=== PATIENT | female | born 1950 | race Caucasian/White ===

== ENCOUNTER 2018-09-26 23:58 | Inpatient (IN) | payer MEDICARE, OTHER ==
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
[2018-09-27 00:39] LABS: % BASOPHILS 4.6 % (0.0-2.0); % EOSINOPHILS 1.9 % (0.0-5.0); % LYMPHOCYTES 16.1 % (20.0-50.0); % MONOCYTES 7.2 % (2.0-10.0); % NEUTROPHILS 70.2 % (40.0-80.0); BASOPHILE ABSOLUTE 0.5 Th/cumm (0-0.2); EOSINOPHILE ABSOLUTE 0.2 Th/cmm (0.1-0.4); HEMATOCRIT 40.1 % (41.0-60); HEMOGLOBIN 13.4 gm/dL (12-16); LYMPHOCYTE ABSOLUTE 1.7 Th/cmm (1.5-3.0); MEAN CELL VOLUME 86.3 fl (81-100); MEAN CORPUSCULAR HEMOGLOBIN 28.9 pg (27.0-31.0); MEAN CORPUSCULAR HGB CONC 33.5 pg (28.0-36.0); MONOCYTE ABSOLUTE 0.8 Th/cmm (0.3-1.0); NEUTROPHILE ABSOLUTE 7.3 Th/cmm (1.8-8.0); PLATELET COUNT 277 Th/cmm (150-400); RED BLOOD COUNT 4.64 Mil/cmm (3.80-5.20); RED CELL DISTRIBUTION WIDTH 12.8 % (11.5-20.0); WHITE BLOOD COUNT 10.5 Th/cmm (4.8-10.8)
[2018-09-27 00:56] LABS: ALB/GLOB RATIO 1.7 (1.0-1.8); ALBUMIN 4.1 gm/dL (3.7-5.3); ALKALINE PHOSPHATASE 64 U/L (34-104); ANION GAP 11.2 (7.0-16.0); BILIRUBIN,TOTAL 0.3 mg/dL (0.3-1.0); BUN - UREA NITROGEN 19 mg/dL (7-25); CALCIUM SERUM 9.3 mg/dL (8.6-10.3); CARBON DIOXIDE 27.7 mEq/L (21.0-31.0); CHLORIDE 103 mEq/L (98-107); CHOLESTEROL 177 mg/dL (<200); CREATININE - SERUM 0.9 mg/dL (0.6-1.2); GFR AFRICAN-AMERICAN > 60.0 ml/min (>90); GFR NON AFRICAN-AMERICAN > 60.0 ml/min; GLUCOSE 127 mg/dL (70-105); HDL -HIGH DENSITY LIPOPROTEIN 65 mg/dL (23-92); POTASSIUM SERUM 3.9 mEq/L (3.5-5.1); SGOT 25 U/L (13-39); SGPT/ALT 16 U/L (7-52); SODIUM SERUM 138 mEq/L (136-145); TOTAL PROTEIN,SERUM 6.5 gm/dL (6.0-8.3); TRIGLYCERIDES 88 mg/dL (<150)
[2018-09-27 00:57] LABS: URINE SOURCE CLEAN C
[2018-09-27 01:01] LABS: URINE BILIRUBIN NEGATIVE (NEGATIVE); URINE BLOOD NEGATIVE (NEGATIVE); URINE GLUCOSE (UA) NEGATIVE (NEGATIVE); URINE KETONE NEGATIVE (NEGATIVE); URINE LEUKOCYTE ESTERASE TRACE (NEGATIVE); URINE MICROSCOPIC INDICATED? YES; URINE NITRATE NEGATIVE (NEGATIVE); URINE PROTEIN NEGATIVE (NEGATIVE); URINE UROBILINOGEN 0.2 E.U./dL (0.2 - 1.0)
[2018-09-27 01:02] LABS: URINE CLARITY CLEAR (CLEAR); URINE COLOR YELLOW
[2018-09-27 01:09] LABS: URINE EPITHELIAL CELLS FEW /lpf (FEW); URINE RBC 0-2 /hpf (0-5); URINE WBC 0-2 /hpf (0-5)
[2018-09-27 01:10] LABS: URINE BACTERIA FEW /hpf (NONE SEEN)
[2018-09-27 03:54] VITALS: BP 132/88
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
--- NOTE | 2018-09-27 14:20 | Internal Medicine Prog Note ---
Internal Medicine Subjective - Subjective Service Date: 09/27/18 ([id number] [facility]) Internal Medicine Objective - Results Result Diagrams: 09/27/18 00:30 09/27/18 00:30 Recent Labs: Laboratory Last Values WBC 10.5 Th/cmm (4.8-10.8) 09/27/18 00:30 RBC 4.64 Mil/cmm (3.80-5.20) 09/27/18 00:30 Hgb 13.4 gm/dL (12-16) 09/27/18 00:30 Hct 40.1 % (41.0-60) L 09/27/18 00:30 MCV 86.3 fl (81-100) 09/27/18 00:30 MCH 28.9 pg (27.0-31.0) 09/27/18 00:30 MCHC Differential 33.5 pg (28.0-36.0) 09/27/18 00:30 RDW 12.8 % (11.5-20.0) 09/27/18 00:30 Plt Count 277 Th/cmm (150-400) 09/27/18 00:30 MPV 7.0 fl 09/27/18 00:30 Neutrophils % 70.2 % (40.0-80.0) 09/27/18 00:30 Lymphocytes % 16.1 % (20.0-50.0) L 09/27/18 00:30 Monocytes % 7.2 % (2.0-10.0) 09/27/18 00:30 Eosinophils % 1.9 % (0.0-5.0) 09/27/18 00:30 Basophils % 4.6 % (0.0-2.0) H 09/27/18 00:30 Sodium 138 mEq/L (136-145) 09/27/18 00:30 Potassium 3.9 mEq/L (3.5-5.1) 09/27/18 00:30 Chloride 103 mEq/L (98-107) 09/27/18 00:30 Carbon Dioxide 27.7 mEq/L (21.0-31.0) 09/27/18 00:30 Anion Gap 11.2 (7.0-16.0) 09/27/18 00:30 BUN 19 mg/dL (7-25) 09/27/18 00:30 Creatinine 0.9 mg/dL (0.6-1.2) 09/27/18 00:30 Est GFR ( Amer) > 60.0 ml/min (>90) 09/27/18 Est GFR (Non-Af Amer) > 60.0 ml/min 09/27/18 00: BUN/Creatinine Ratio 21.1 09/27/18 Glucose 127 mg/dL (70-105) H 09/27/18: Calcium 9.3 mg/dL (8.6-10.3) 09/27/18: Total Bilirubin 0.3 mg/dL (0.3-1.0) 09/27/18: AST 25 U/L (13-39) 09/27/18: ALT 16 U/L (7-52) 09/27/18: Alkaline Phosphatase 64 U/L (34-104) 09/27/18 Total Protein 6.5 gm/dL (6.0-8.3) 09/27/18: Albumin 4.1 gm/dL (3.7-5.3) 09/27/18: Globulin 2.4 gm/dL 09/27/18: Albumin/Globulin Ratio 1.7 (1.0-1.8) 09/27/18 00:30 Triglycerides 88 mg/dL (<150) 09/27/18 00:30 Cholesterol 177 mg/dL (<200) 09/27/18 00:30 LDL Cholesterol Direct 111 mg/dL (75-193) 09/27/18: HDL Cholesterol 65 mg/dL (23-92) 09/27/18 00:30 TSH 4.84 uIU/ml (0.34-5.60) 09/27/18 00:30 Urine Source CLEAN C 09/27/18:35 Urine Color YELLOW 09/27/18: Urine Clarity CLEAR (CLEAR) 09/27/18: Urine pH 6.0 (4.6 - 8.0) 09/27/18 00: Ur Specific [place] 1.010 (1.005-1.030) 09/27/18: Urine Protein NEGATIVE mg/dL (NEGATIVE) 09/27/18:35 Urine Glucose (UA) NEGATIVE mg/dL (NEGATIVE) 09/27/18 00:35 Urine Ketones NEGATIVE mg/dL (NEGATIVE) 09/27/18 00:35 Urine Blood NEGATIVE (NEGATIVE) 09/27/18 00:35 Urine Nitrate NEGATIVE (NEGATIVE) 09/27/18 00:35 Urine Bilirubin NEGATIVE (NEGATIVE) 09/27/18 00:35 Urine Urobilinogen 0.2 E.U./dL (0.2 - 1.0) 09/27/18 00:35 Ur Leukocyte Esterase TRACE (NEGATIVE) H 09/27/18 00:35 Urine RBC 0-2 /hpf (0-5) 09/27/18 00:35 Urine WBC 0-2 /hpf (0-5) 09/27/18 00:35 Ur Epithelial Cells FEW /lpf (FEW) 09/27/18 00:35 Urine Bacteria FEW /hpf (NONE SEEN) 09/27/18 00:35 - Physical Exam Vitals and I&O: Vital Signs Temp 98.2 F 09/27/18 07:09 Pulse 68 09/27/18 07:09 Resp 20 09/27/18 07:09 BP 134/82 09/27/18 07:09 Pulse Ox 98 09/27/18 07:09 Intake & Output 09/26/18 09/27/18 09/27/18 18:59 06:59 18:59 Weight (lbs) 110 lb Other: Weight Source Patient stated Active Medications: Current Medications Sertraline HCl (Zoloft) 25 mg PO QAM [facility]; Protocol Stop: 11/26/18 08:59 Last Admin: 09/27/18 12:21 Dose: 25 mg Sertraline HCl (Zoloft) 50 mg PO QPM [facility]; Protocol Stop: 11/26/18 16:59
[2018-09-27] MEDS ORDERED: Magnesium Hydroxide (MOM) 30 mL UDC PO PRN (15:03)
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
[2018-09-28] MEDS ORDERED: Haloperidol Lactate 5 mg/mL 1mL Vial IM ONE (03:00)
--- NOTE | 2018-09-28 14:10 | Internal Medicine Prog Note ---
Internal Medicine Subjective - Subjective Service Date: 09/28/18 Patient seen and examined:: with staff Patient is:: awake, verbal Per staff patient has:: tolerating meds Internal Medicine Objective - Results Result Diagrams: 09/27/18 00:30 09/27/18 00:30 Recent Labs: Laboratory Last Values WBC 10.5 Th/cmm (4.8-10.8) 09/27/18 00:30 RBC 4.64 Mil/cmm (3.80-5.20) 09/27/18 00:30 Hgb 13.4 gm/dL (12-16) 09/27/18 00:30 Hct 40.1 % (41.0-60) L 09/27/18 00:30 MCV 86.3 fl (81-100) 09/27/18 00:30 MCH 28.9 pg (27.0-31.0) 09/27/18 00:30 MCHC Differential 33.5 pg (28.0-36.0) 09/27/18 00:30 RDW 12.8 % (11.5-20.0) 09/27/18 00:30 Plt Count 277 Th/cmm (150-400) 09/27/18 00:30 MPV 7.0 fl 09/27/18 00:30 Neutrophils % 70.2 % (40.0-80.0) 09/27/18 00:30 Lymphocytes % 16.1 % (20.0-50.0) L 09/27/18 00:30 Monocytes % 7.2 % (2.0-10.0) 09/27/18 00:30 Eosinophils % 1.9 % (0.0-5.0) 09/27/18 00:30 Basophils % 4.6 % (0.0-2.0) H 09/27/18 00:30 Sodium 138 mEq/L (136-145) 09/27/18 00:30 Potassium 3.9 mEq/L (3.5-5.1) 09/27/18 00:30 Chloride 103 mEq/L (98-107) 09/27/18 00:30 Carbon Dioxide 27.7 mEq/L (21.0-31.0) 09/27/18 00:30 Anion Gap 11.2 (7.0-16.0) 09/27/18 00:30 BUN 19 mg/dL (7-25) 09/27/18 00:30 Creatinine 0.9 mg/dL (0.6-1.2) 09/27/18 00:30 Est GFR ( Amer) > 60.0 ml/min (>90) 09/27/18:30 Est GFR (Non-Af Amer) > 60.0 ml/min 09/27/18 00: BUN/Creatinine Ratio 21.1 09/27/18 Glucose 127 mg/dL (70-105) H 09/27/18: Calcium 9.3 mg/dL (8.6-10.3) 09/27/18:30 Total Bilirubin 0.3 mg/dL (0.3-1.0) 09/27/18:30 AST 25 U/L (13-39) 09/27/18:30 ALT 16 U/L (7-52) 09/27/18: Alkaline Phosphatase 64 U/L (34-104) 09/27/18:30 Total Protein 6.5 gm/dL (6.0-8.3) 09/27/18 00:30 Albumin 4.1 gm/dL (3.7-5.3) 09/27/18:30 Globulin 2.4 gm/dL 09/27/18:30 Albumin/Globulin Ratio 1.7 (1.0-1.8) 09/27/18 00:30 Triglycerides 88 mg/dL (<150) 09/27/18 00:30 Cholesterol 177 mg/dL (<200) 09/27/18 00:30 LDL Cholesterol Direct 111 mg/dL (75-193) 09/27/18 00:30 HDL Cholesterol 65 mg/dL (23-92) 09/27/18 00:30 TSH 4.84 uIU/ml (0.34-5.60) 09/27/18 00:30 Urine Source CLEAN C 09/27/18:35 Urine Color YELLOW 09/27/18:35 Urine Clarity CLEAR (CLEAR) 09/27/18:35 Urine pH 6.0 (4.6 - 8.0) 09/27/18 00:35 Ur Specific [place] 1.010 (1.005-1.030) 11/26/18 00:35 Urine Protein NEGATIVE mg/dL (NEGATIVE) 09/27/18 00:35 Urine Glucose (UA) NEGATIVE mg/dL (NEGATIVE) 09/27/18 00:35 Urine Ketones NEGATIVE mg/dL (NEGATIVE) 09/27/18 00:35 Urine Blood NEGATIVE (NEGATIVE) 09/27/18 00:35 Urine Nitrate NEGATIVE (NEGATIVE) 09/27/18 00:35 Urine Bilirubin NEGATIVE (NEGATIVE) 09/27/18 00:35 Urine Urobilinogen 0.2 E.U./dL (0.2 - 1.0) 09/27/18 00:35 Ur Leukocyte Esterase TRACE (NEGATIVE) H 09/27/18 00:35 Urine RBC 0-2 /hpf (0-5) 09/27/18 00:35 Urine WBC 0-2 /hpf (0-5) 09/27/18 00:35 Ur Epithelial Cells FEW /lpf (FEW) 09/27/18 00:35 Urine Bacteria FEW /hpf (NONE SEEN) 09/27/18 00:35 - Physical Exam Vitals and I&O: Vital Signs Temp 98 F 09/28/18 06:34 Pulse 82 09/28/18 06:34 Resp 18 09/28/18 06:34 BP 137/86 09/28/18 06:34 Pulse Ox 98 09/28/18 06:34 Intake & Output 09/27/18 09/28/18 09/28/18 18:59 06:59 18:59 Intake Total 900 120 Balance 900 120 Intake: Oral 900 120 Other: # Voids 4 3 # Bowel Movements 1 0 Active Medications: Current Medications Acetaminophen (Tylenol) 650 mg PO Q4H PRN PRN Reason: pain Stop: 11/26/18 15:14 Lorazepam (Ativan) 0.5 mg PO Q6HR PRN; Protocol PRN Reason: Agitation Stop: 11/26/18 14:51 Last Admin: 09/28/18 09:14 Dose: 0.5 mg Magnesium Hydroxide (Milk Of Magnesia) 30 ml PO HS PRN PRN Reason: Constipation Stop: 11/26/18 15:02 Sertraline HCl (Zoloft) 50 mg PO QPM [facility] Stop: 11/26/18 16:59 Last Admin: 09/27/18 16:38 Dose: 50 mg Sertraline HCl (Zoloft) 25 mg PO QAM [facility] Stop: 11/27/18 08:59 Last Admin: 09/28/18 09:14 Dose: 25 mg General: alert HEENT: NC/AT, PERRLA Neck: Supple Lungs: CTAB Cardiovascular: RRR, Normal S1, Normal S2, without murmur Abdomen: soft, non-tender, non-distended, positive bowel sound Extremities: excoriation Neurological: alert Internal Medicine Assmt/Plan - Assessment Assessment: osteoporosis anxiety seizure - Plan Plan: seizure precautions fall precautions cpm
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
--- NOTE | 2018-09-29 14:44 | Internal Medicine Prog Note ---
Internal Medicine Subjective - Subjective Service Date: 09/29/18 Patient is:: awake, verbal Per staff patient has:: tolerating meds Internal Medicine Objective - Results Result Diagrams: 09/27/18 00:30 09/27/18 00:30 Recent Labs: Laboratory Last Values WBC 10.5 Th/cmm (4.8-10.8) 09/27/18 00:30 RBC 4.64 Mil/cmm (3.80-5.20) 09/27/18 00:30 Hgb 13.4 gm/dL (12-16) 09/27/18 00:30 Hct 40.1 % (41.0-60) L 09/27/18 00:30 MCV 86.3 fl (81-100) 09/27/18 00:30 MCH 28.9 pg (27.0-31.0) 09/27/18 00:30 MCHC Differential 33.5 pg (28.0-36.0) 09/27/18 00:30 RDW 12.8 % (11.5-20.0) 09/27/18 00:30 Plt Count 277 Th/cmm (150-400) 09/27/18 00:30 MPV 7.0 fl 09/27/18 00:30 Neutrophils % 70.2 % (40.0-80.0) 09/27/18 00:30 Lymphocytes % 16.1 % (20.0-50.0) L 09/27/18 00:30 Monocytes % 7.2 % (2.0-10.0) 09/27/18 00:30 Eosinophils % 1.9 % (0.0-5.0) 09/27/18 00:30 Basophils % 4.6 % (0.0-2.0) H 09/27/18 00:30 Sodium 138 mEq/L (136-145) 09/27/18 00:30 Potassium 3.9 mEq/L (3.5-5.1) 09/27/18 00:30 Chloride 103 mEq/L (98-107) 09/27/18 00:30 Carbon Dioxide 27.7 mEq/L (21.0-31.0) 09/27/18 00:30 Anion Gap 11.2 (7.0-16.0) 09/27/18 00:30 BUN 19 mg/dL (7-25) 09/27/18 00:30 Creatinine 0.9 mg/dL (0.6-1.2) 09/27/18 00:30 Est GFR ( Amer) > 60.0 ml/min (>90) 09/27/18 00:30 Est GFR (Non-Af Amer) > 60.0 ml/min 09/27/18 00: BUN/Creatinine Ratio 21.1 09/27/18: Glucose 127 mg/dL (70-105) H 09/27/18: Calcium 9.3 mg/dL (8.6-10.3) 09/27/18:30 Total Bilirubin 0.3 mg/dL (0.3-1.0) 09/27/18:30 AST 25 U/L (13-39) 09/27/18 00:30 ALT 16 U/L (7-52) 09/27/18 00: Alkaline Phosphatase 64 U/L (34-104) 09/27/18 00:30 Total Protein 6.5 gm/dL (6.0-8.3) 09/27/18 00:30 Albumin 4.1 gm/dL (3.7-5.3) 09/27/18: Globulin 2.4 gm/dL 09/27/18 00:30 Albumin/Globulin Ratio 1.7 (1.0-1.8) 09/27/18 00:30 Triglycerides 88 mg/dL (<150) 09/27/18 00:30 Cholesterol 177 mg/dL (<200) 09/27/18 00:30 LDL Cholesterol Direct 111 mg/dL (75-193) 09/27/18 00:30 HDL Cholesterol 65 mg/dL (23-92) 09/27/18 00:30 TSH 4.84 uIU/ml (0.34-5.60) 09/27/18 00:30 Urine Source CLEAN C 09/27/18:35 Urine Color YELLOW 09/27/18: Urine Clarity CLEAR (CLEAR) 09/27/18: Urine pH 6.0 (4.6 - 8.0) 09/27/18 00:35 Ur Specific [place] 1.010 (1.005-1.030) 09/27/18: Urine Protein NEGATIVE mg/dL (NEGATIVE) 11/26/18 00:35 Urine Glucose (UA) NEGATIVE mg/dL (NEGATIVE) 09/27/18 00:35 Urine Ketones NEGATIVE mg/dL (NEGATIVE) 09/27/18 00:35 Urine Blood NEGATIVE (NEGATIVE) 09/27/18 00:35 Urine Nitrate NEGATIVE (NEGATIVE) 09/27/18 00:35 Urine Bilirubin NEGATIVE (NEGATIVE) 09/27/18 00:35 Urine Urobilinogen 0.2 E.U./dL (0.2 - 1.0) 09/27/18 00:35 Ur Leukocyte Esterase TRACE (NEGATIVE) H 09/27/18 00:35 Urine RBC 0-2 /hpf (0-5) 09/27/18 00:35 Urine WBC 0-2 /hpf (0-5) 09/27/18 00:35 Ur Epithelial Cells FEW /lpf (FEW) 09/27/18 00:35 Urine Bacteria FEW /hpf (NONE SEEN) 09/27/18 00:35 RPR NONREACTIVE (NONREACTIVE) 09/27/18 00:30 - Physical Exam Vitals and I&O: Vital Signs Temp 97.8 F 09/29/18 06:36 Pulse 91 09/29/18 06:36 Resp 20 09/29/18 06:36 BP 141/97 09/29/18 06:36 Pulse Ox 98 09/29/18 06:36 Intake & Output 09/28/18 09/29/18 09/29/18 18:59 06:59 18:59 Intake Total 240 Balance 240 Intake: Oral 240 Other: # Voids 3 1 # Bowel Movements 0 0 Active Medications: Current Medications Acetaminophen (Tylenol) 650 mg PO Q4H PRN PRN Reason: pain Stop: 11/26/18 15:14 Lorazepam (Ativan) 0.5 mg PO Q6HR PRN; Protocol PRN Reason: Agitation Stop: 11/26/18 14:51 Last Admin: 09/28/18 17:52 Dose: 0.5 mg Magnesium Hydroxide (Milk Of Magnesia) 30 ml PO HS PRN PRN Reason: Constipation Stop: 11/26/18 15:02 Sertraline HCl (Zoloft) 50 mg PO QPM [facility] Stop: 11/26/18 16:59 Last Admin: 09/28/18 17:52 Dose: 50 mg Sertraline HCl (Zoloft) 25 mg PO QAM [facility] Stop: 11/27/18 08:59 Last Admin: 09/29/18 08:26 Dose: 25 mg General: alert HEENT: NC/AT, PERRLA Neck: Supple Lungs: CTAB Cardiovascular: RRR, Normal S1, Normal S2, without murmur Abdomen: soft, non-tender, non-distended, positive bowel sound Extremities: excoriation Neurological: alert Internal Medicine Assmt/Plan - Assessment Assessment: osteoporosis anxiety seizure - Plan Plan: seizure precautions fall precautions cpm
--- NOTE | 2018-09-30 03:20 | Progress Notes ---
DATE: SUBJECTIVE: Chart reviewed and the patient interviewed. Also discussed the patient's condition with the staff and reviewed the record and labs. The patient is still confused and she is still anxious. The patient also is still unable to provide any safe plan for self-care and she is still easily agitated. The patient also is having severe mood swings. Otherwise, the patient is compliant with taking her medications, but still with prompt instructions from the staff and with lots of redirections. Otherwise, also the patient is compliant with medications and she is cooperative with her treatment. ASSESSMENT: The patient is still psychotic and is still agitated. TREATMENT PLAN: We will continue to monitor her behavior and condition closely. Also, we will work on her ineffective coping and behavior modification and we will continue to follow up closely. JOB# [id number]
--- NOTE | 2018-09-30 14:15 | Internal Medicine Prog Note ---
Internal Medicine Subjective - Subjective Service Date: 09/30/18 Patient is:: awake, verbal Per staff patient has:: tolerating meds Internal Medicine Objective - Results Result Diagrams: 09/27/18 00:30 09/27/18 00:30 Recent Labs: Laboratory Last Values WBC 10.5 Th/cmm (4.8-10.8) 09/27/18 00:30 RBC 4.64 Mil/cmm (3.80-5.20) 09/27/18 00:30 Hgb 13.4 gm/dL (12-16) 09/27/18 00:30 Hct 40.1 % (41.0-60) L 09/27/18 00:30 MCV 86.3 fl (81-100) 09/27/18 00:30 MCH 28.9 pg (27.0-31.0) 09/27/18 00:30 MCHC Differential 33.5 pg (28.0-36.0) 09/27/18 00:30 RDW 12.8 % (11.5-20.0) 09/27/18 00:30 Plt Count 277 Th/cmm (150-400) 09/27/18 00:30 MPV 7.0 fl 09/27/18 00:30 Neutrophils % 70.2 % (40.0-80.0) 09/27/18 00:30 Lymphocytes % 16.1 % (20.0-50.0) L 09/27/18 00:30 Monocytes % 7.2 % (2.0-10.0) 09/27/18 00:30 Eosinophils % 1.9 % (0.0-5.0) 09/27/18 00:30 Basophils % 4.6 % (0.0-2.0) H 09/27/18 00:30 Sodium 138 mEq/L (136-145) 09/27/18 00:30 Potassium 3.9 mEq/L (3.5-5.1) 09/27/18 00:30 Chloride 103 mEq/L (98-107) 09/27/18 00:30 Carbon Dioxide 27.7 mEq/L (21.0-31.0) 09/27/18 00:30 Anion Gap 11.2 (7.0-16.0) 09/27/18 00:30 BUN 19 mg/dL (7-25) 09/27/18 00:30 Creatinine 0.9 mg/dL (0.6-1.2) 09/27/18 00:30 Est GFR ( Amer) > 60.0 ml/min (>90) 09/27/18 00:30 Est GFR (Non-Af Amer) > 60.0 ml/min 09/27/18 00: BUN/Creatinine Ratio 21.1 09/27/18: Glucose 127 mg/dL (70-105) H 09/27/18: Calcium 9.3 mg/dL (8.6-10.3) 09/27/18:30 Total Bilirubin 0.3 mg/dL (0.3-1.0) 09/27/18:30 AST 25 U/L (13-39) 09/27/18 00:30 ALT 16 U/L (7-52) 09/27/18 00: Alkaline Phosphatase 64 U/L (34-104) 09/27/18 00:30 Total Protein 6.5 gm/dL (6.0-8.3) 09/27/18 00:30 Albumin 4.1 gm/dL (3.7-5.3) 09/27/18: Globulin 2.4 gm/dL 09/27/18 00:30 Albumin/Globulin Ratio 1.7 (1.0-1.8) 09/27/18 00:30 Triglycerides 88 mg/dL (<150) 09/27/18 00:30 Cholesterol 177 mg/dL (<200) 09/27/18 00:30 LDL Cholesterol Direct 111 mg/dL (75-193) 09/27/18 00:30 HDL Cholesterol 65 mg/dL (23-92) 09/27/18 00:30 TSH 4.84 uIU/ml (0.34-5.60) 09/27/18 00:30 Urine Source CLEAN C 09/27/18:35 Urine Color YELLOW 09/27/18: Urine Clarity CLEAR (CLEAR) 09/27/18: Urine pH 6.0 (4.6 - 8.0) 09/27/18 00:35 Ur Specific [place] 1.010 (1.005-1.030) 09/27/18: Urine Protein NEGATIVE mg/dL (NEGATIVE) 11/26/18 00:35 Urine Glucose (UA) NEGATIVE mg/dL (NEGATIVE) 09/27/18 00:35 Urine Ketones NEGATIVE mg/dL (NEGATIVE) 09/27/18 00:35 Urine Blood NEGATIVE (NEGATIVE) 09/27/18 00:35 Urine Nitrate NEGATIVE (NEGATIVE) 09/27/18 00:35 Urine Bilirubin NEGATIVE (NEGATIVE) 09/27/18 00:35 Urine Urobilinogen 0.2 E.U./dL (0.2 - 1.0) 09/27/18 00:35 Ur Leukocyte Esterase TRACE (NEGATIVE) H 09/27/18 00:35 Urine RBC 0-2 /hpf (0-5) 09/27/18 00:35 Urine WBC 0-2 /hpf (0-5) 09/27/18 00:35 Ur Epithelial Cells FEW /lpf (FEW) 09/27/18 00:35 Urine Bacteria FEW /hpf (NONE SEEN) 09/27/18 00:35 RPR NONREACTIVE (NONREACTIVE) 09/27/18 00:30 - Physical Exam Vitals and I&O: Vital Signs Temp 98.2 F 09/29/18 20:00 Pulse 87 09/29/18 20:00 Resp 19 09/29/18 20:00 BP 133/76 09/29/18 20:00 Pulse Ox 97 09/29/18 20:00 Intake & Output 09/29/18 09/30/18 09/30/18 18:59 06:59 18:59 Intake Total 800 120 Balance 800 120 Intake: Oral 800 120 Other: # Voids 3 3 # Bowel Movements 0 Active Medications: Current Medications Acetaminophen (Tylenol) 650 mg PO Q4H PRN PRN Reason: pain Stop: 11/26/18 15:14 Donepezil HCl (Aricept) 5 mg PO HS [facility] Stop: 11/29/18 20:59 Lorazepam (Ativan) 0.5 mg PO Q6HR PRN; Protocol PRN Reason: Agitation Stop: 11/26/18 14:51 Last Admin: 09/29/18 17:27 Dose: 0.5 mg Magnesium Hydroxide (Milk Of Magnesia) 30 ml PO HS PRN PRN Reason: Constipation Stop: 11/26/18 15:02 Sertraline HCl (Zoloft) 50 mg PO QPM [facility] Stop: 11/26/18 16:59 Last Admin: 09/29/18 17:26 Dose: 50 mg [facility]) [facility] Stop: 11/27/18 08:59 Last Admin: 09/30/18 08:51 Dose: 25 mg General: alert HEENT: NC/AT, PERRLA Neck: Supple Lungs: CTAB Cardiovascular: RRR, Normal S1, Normal S2, without murmur Abdomen: soft, non-tender, non-distended, positive bowel sound Extremities: excoriation Neurological: alert Internal Medicine Assmt/Plan - Assessment Assessment: osteoporosis anxiety seizure - Plan Plan: seizure precautions fall precautions cpm
--- NOTE | 2018-10-01 06:13 | Progress Notes ---
DATE: 09/30/2018 SUBJECTIVE: Chart reviewed and the patient interviewed. Also discussed the patient's condition with the staff and reviewed records and labs. The patient is still forgetful and she is confused. The patient also needs lots of redirections, but she has difficulty following directions. The patient keeps asking questions over and over and repeating the same question because of her forgetfulness. Otherwise, the patient had no major behavioral problems except pacing up and down the unit. ASSESSMENT: The patient is still confused. TREATMENT PLAN: We will continue monitoring her behavior closely. We will add Aricept 5 mg at bedtime and we will continue to follow up closely. JOB# [id number]
--- NOTE | 2018-10-01 13:46 | Internal Medicine Prog Note ---
Internal Medicine Subjective - Subjective Service Date: 10/01/18 Patient is:: awake, verbal Per staff patient has:: tolerating meds Internal Medicine Objective - Results Result Diagrams: 09/27/18 00:30 09/27/18 00:30 Recent Labs: Laboratory Last Values WBC 10.5 Th/cmm (4.8-10.8) 09/27/18 00:30 RBC 4.64 Mil/cmm (3.80-5.20) 09/27/18 00:30 Hgb 13.4 gm/dL (12-16) 09/27/18 00:30 Hct 40.1 % (41.0-60) L 09/27/18 00:30 MCV 86.3 fl (81-100) 09/27/18 00:30 MCH 28.9 pg (27.0-31.0) 09/27/18 00:30 MCHC Differential 33.5 pg (28.0-36.0) 09/27/18 00:30 RDW 12.8 % (11.5-20.0) 09/27/18 00:30 Plt Count 277 Th/cmm (150-400) 09/27/18 00:30 MPV 7.0 fl 09/27/18 00:30 Neutrophils % 70.2 % (40.0-80.0) 09/27/18 00:30 Lymphocytes % 16.1 % (20.0-50.0) L 09/27/18 00:30 Monocytes % 7.2 % (2.0-10.0) 09/27/18 00:30 Eosinophils % 1.9 % (0.0-5.0) 09/27/18 00:30 Basophils % 4.6 % (0.0-2.0) H 09/27/18 00:30 Sodium 138 mEq/L (136-145) 09/27/18 00:30 Potassium 3.9 mEq/L (3.5-5.1) 09/27/18 00:30 Chloride 103 mEq/L (98-107) 09/27/18 00:30 Carbon Dioxide 27.7 mEq/L (21.0-31.0) 09/27/18 00:30 Anion Gap 11.2 (7.0-16.0) 09/27/18 00:30 BUN 19 mg/dL (7-25) 09/27/18 00:30 Creatinine 0.9 mg/dL (0.6-1.2) 09/27/18 00:30 Est GFR ( Amer) > 60.0 ml/min (>90) 09/27/18 00:30 Est GFR (Non-Af Amer) > 60.0 ml/min 09/27/18 00: BUN/Creatinine Ratio 21.1 09/27/18: Glucose 127 mg/dL (70-105) H 09/27/18: Calcium 9.3 mg/dL (8.6-10.3) 09/27/18:30 Total Bilirubin 0.3 mg/dL (0.3-1.0) 09/27/18:30 AST 25 U/L (13-39) 09/27/18 00:30 ALT 16 U/L (7-52) 09/27/18 00: Alkaline Phosphatase 64 U/L (34-104) 09/27/18 00:30 Total Protein 6.5 gm/dL (6.0-8.3) 09/27/18 00:30 Albumin 4.1 gm/dL (3.7-5.3) 09/27/18: Globulin 2.4 gm/dL 09/27/18 00:30 Albumin/Globulin Ratio 1.7 (1.0-1.8) 09/27/18 00:30 Triglycerides 88 mg/dL (<150) 09/27/18 00:30 Cholesterol 177 mg/dL (<200) 09/27/18 00:30 LDL Cholesterol Direct 111 mg/dL (75-193) 09/27/18 00:30 HDL Cholesterol 65 mg/dL (23-92) 09/27/18 00:30 TSH 4.84 uIU/ml (0.34-5.60) 09/27/18 00:30 Urine Source CLEAN C 09/27/18:35 Urine Color YELLOW 09/27/18: Urine Clarity CLEAR (CLEAR) 09/27/18: Urine pH 6.0 (4.6 - 8.0) 09/27/18 00:35 Ur Specific [place] 1.010 (1.005-1.030) 09/27/18: Urine Protein NEGATIVE mg/dL (NEGATIVE) 11/26/18 00:35 Urine Glucose (UA) NEGATIVE mg/dL (NEGATIVE) 09/27/18 00:35 Urine Ketones NEGATIVE mg/dL (NEGATIVE) 09/27/18 00:35 Urine Blood NEGATIVE (NEGATIVE) 09/27/18 00:35 Urine Nitrate NEGATIVE (NEGATIVE) 09/27/18 00:35 Urine Bilirubin NEGATIVE (NEGATIVE) 09/27/18 00:35 Urine Urobilinogen 0.2 E.U./dL (0.2 - 1.0) 09/27/18 00:35 Ur Leukocyte Esterase TRACE (NEGATIVE) H 09/27/18 00:35 Urine RBC 0-2 /hpf (0-5) 09/27/18 00:35 Urine WBC 0-2 /hpf (0-5) 09/27/18 00:35 Ur Epithelial Cells FEW /lpf (FEW) 09/27/18 00:35 Urine Bacteria FEW /hpf (NONE SEEN) 09/27/18 00:35 RPR NONREACTIVE (NONREACTIVE) 09/27/18 00:30 - Physical Exam Vitals and I&O: Vital Signs Temp 98.0 F 10/01/18 06:41 Pulse 75 10/01/18 06:41 Resp 18 10/01/18 11:03 BP 133/75 10/01/18 06:41 Pulse Ox 100 10/01/18 06:41 Intake & Output 09/30/18 10/01/18 10/01/18 18:59 06:59 18:59 Intake Total 860 240 Balance 860 240 Intake: Oral 860 240 Other: # Voids 3 1 # Bowel Movements 1 Stool Characteristics Soft Formed Brown Active Medications: Current Medications Acetaminophen (Tylenol) 650 mg PO Q4H PRN PRN Reason: pain Stop: 11/26/18 15:14 Donepezil HCl (Aricept) 5 mg PO HS [facility] Stop: 11/29/18 20:59 Last Admin: 09/30/18 21:41 Dose: 5 mg Lorazepam (Ativan) 0.5 mg PO Q6HR PRN; Protocol PRN Reason: Agitation Stop: 11/26/18 14:51 Last Admin: 09/30/18 21:41 Dose: 0.5 mg Magnesium Hydroxide (Milk Of Magnesia) 30 ml PO HS PRN PRN Reason: Constipation Stop: 11/26/18 15:02 Sertraline HCl (Zoloft) 50 mg PO QPM [facility] Stop: 11/26/18 16:59 Last Admin: 09/30/18 17:08 Dose: 50 mg Sertraline HCl (Zoloft) 25 mg PO QAM [facility] Stop: 11/27/18 08:59 Last Admin: 10/01/18 08:37 Dose: 25 mg General: alert HEENT: NC/AT, PERRLA Neck: Supple Lungs: CTAB Cardiovascular: RRR, Normal S1, Normal S2, without murmur Abdomen: soft, non-tender, non-distended, positive bowel sound Extremities: excoriation Neurological: alert Internal Medicine Assmt/Plan - Assessment Assessment: osteoporosis anxiety seizure - Plan Plan: seizure precautions fall precautions cpm Nutritional Asmnt/Malnutr-PDOC - Dietary Evaluation Malnutrition Findings (Please click <Entered> for more info): Nutritional Asmnt/Malnutrition Start: 10/01/18 13: 18 Text: Status: Complete Freq: Protocol: Document 10/01/18 13:18 CHENG (Rec: 10/01/18 13:29 CHENG [email or web address]) Nutritional Asmnt/Malnutrition Patient General Information Nutritional Screening Low Risk Diagnosis psychosis NOS Pertinent Medical Hx/Surgical Hx osteoporosis, anxiety, seizure , dementia, HTN Subjective Information Pt eating lunch in rec room during visit. Pt states all her meals are delicious. Discussed pt's lower PO intake since 09/28, but pt states her appetite is good and she will eat more. Pt expressed concerns about her wt; explained that her BMI's healthy. Nursing noted PO intake: 25-50% since 09/28, but 75-100% on 09/27. Current Diet Order/ Nutrition Support regular Pertinent Medications zoloft Pertinent Labs 09/27: glucose 127 Nutritional Hx/Data Height 5 ft Height (Calculated Centimeters) 152.4 Current Weight (lbs) 110 lb Weight (Calculated Kilograms) 49.9 Weight (Calculated Grams) 37344.2 [place] Body Weight 100 lb Body Mass Index (BMI) 21.4 Weight Status Approriate GI Symptoms GI Symptoms None Last BM 09/30 Difficult in: None Food Allergies No Skin Integrity/Comment: intact, bassem 22 Current %PO Poor (25-49%) Estimated Nutritional Goals BEE in Kcals: Using Current wt Calories/Kcals/Kg 25-30 Kcals Calculated 4064-9748 Protein: Using Current wt Protein g/k.0 Protein Calculated 50 g Fluid: ml 6270-9457 (1 ml/kcal) Nutritional Problem 1. Problem Problem Inadequate oral intake Etiology possible confusion Signs/Symptoms: PO intake 25-50% since 09/28 Intervention/Recommendation Comments 1. Continue with regular diet as ordered. Encourage PO intake and assist with meals as needed 2. Consider adding nutrition supplement if PO intake <50% 3. Monitor PO intake, wt, labs and skin integrity 4. F/U as moderate risk in 3-5 days, 10/04-; PO check 10/04 Expected Outcomes/Goals Expected Outcomes/Goals 1. PO intake to meet at least 75% of all meals 2. Wt stability, skin to remain intact, labs to approach WNL
--- NOTE | 2018-10-02 14:41 | Internal Medicine Prog Note ---
Internal Medicine Subjective - Subjective Service Date: 10/02/18 Patient is:: awake, verbal Per staff patient has:: tolerating meds Internal Medicine Objective - Results Result Diagrams: 09/27/18 00:30 09/27/18 00:30 Recent Labs: Laboratory Last Values WBC 10.5 Th/cmm (4.8-10.8) 09/27/18 00:30 RBC 4.64 Mil/cmm (3.80-5.20) 09/27/18 00:30 Hgb 13.4 gm/dL (12-16) 09/27/18 00:30 Hct 40.1 % (41.0-60) L 09/27/18 00:30 MCV 86.3 fl (81-100) 09/27/18 00:30 MCH 28.9 pg (27.0-31.0) 09/27/18 00:30 MCHC Differential 33.5 pg (28.0-36.0) 09/27/18 00:30 RDW 12.8 % (11.5-20.0) 09/27/18 00:30 Plt Count 277 Th/cmm (150-400) 09/27/18 00:30 MPV 7.0 fl 09/27/18 00:30 Neutrophils % 70.2 % (40.0-80.0) 09/27/18 00:30 Lymphocytes % 16.1 % (20.0-50.0) L 09/27/18 00:30 Monocytes % 7.2 % (2.0-10.0) 09/27/18 00:30 Eosinophils % 1.9 % (0.0-5.0) 09/27/18 00:30 Basophils % 4.6 % (0.0-2.0) H 09/27/18 00:30 Sodium 138 mEq/L (136-145) 09/27/18 00:30 Potassium 3.9 mEq/L (3.5-5.1) 09/27/18 00:30 Chloride 103 mEq/L (98-107) 09/27/18 00:30 Carbon Dioxide 27.7 mEq/L (21.0-31.0) 09/27/18 00:30 Anion Gap 11.2 (7.0-16.0) 09/27/18 00:30 BUN 19 mg/dL (7-25) 09/27/18 00:30 Creatinine 0.9 mg/dL (0.6-1.2) 09/27/18 00:30 Est GFR ( Amer) > 60.0 ml/min (>90) 09/27/18 00:30 Est GFR (Non-Af Amer) > 60.0 ml/min 09/27/18 00: BUN/Creatinine Ratio 21.1 09/27/18: Glucose 127 mg/dL (70-105) H 09/27/18: Calcium 9.3 mg/dL (8.6-10.3) 09/27/18:30 Total Bilirubin 0.3 mg/dL (0.3-1.0) 09/27/18:30 AST 25 U/L (13-39) 09/27/18 00:30 ALT 16 U/L (7-52) 09/27/18 00: Alkaline Phosphatase 64 U/L (34-104) 09/27/18 00:30 Total Protein 6.5 gm/dL (6.0-8.3) 09/27/18 00:30 Albumin 4.1 gm/dL (3.7-5.3) 09/27/18: Globulin 2.4 gm/dL 09/27/18 00:30 Albumin/Globulin Ratio 1.7 (1.0-1.8) 09/27/18 00:30 Triglycerides 88 mg/dL (<150) 09/27/18 00:30 Cholesterol 177 mg/dL (<200) 09/27/18 00:30 LDL Cholesterol Direct 111 mg/dL (75-193) 09/27/18 00:30 HDL Cholesterol 65 mg/dL (23-92) 09/27/18 00:30 TSH 4.84 uIU/ml (0.34-5.60) 09/27/18 00:30 Urine Source CLEAN C 09/27/18:35 Urine Color YELLOW 09/27/18: Urine Clarity CLEAR (CLEAR) 09/27/18: Urine pH 6.0 (4.6 - 8.0) 09/27/18 00:35 Ur Specific [place] 1.010 (1.005-1.030) 09/27/18: Urine Protein NEGATIVE mg/dL (NEGATIVE) 11/26/18 00:35 Urine Glucose (UA) NEGATIVE mg/dL (NEGATIVE) 09/27/18 00:35 Urine Ketones NEGATIVE mg/dL (NEGATIVE) 09/27/18 00:35 Urine Blood NEGATIVE (NEGATIVE) 09/27/18 00:35 Urine Nitrate NEGATIVE (NEGATIVE) 09/27/18 00:35 Urine Bilirubin NEGATIVE (NEGATIVE) 09/27/18 00:35 Urine Urobilinogen 0.2 E.U./dL (0.2 - 1.0) 09/27/18 00:35 Ur Leukocyte Esterase TRACE (NEGATIVE) H 09/27/18 00:35 Urine RBC 0-2 /hpf (0-5) 09/27/18 00:35 Urine WBC 0-2 /hpf (0-5) 09/27/18 00:35 Ur Epithelial Cells FEW /lpf (FEW) 09/27/18 00:35 Urine Bacteria FEW /hpf (NONE SEEN) 09/27/18 00:35 RPR NONREACTIVE (NONREACTIVE) 09/27/18 00:30 - Physical Exam Vitals and I&O: Vital Signs Temp 98.2 F 10/01/18 21:39 Pulse 83 10/01/18 21:39 Resp 18 10/02/18 13:29 BP 120/65 10/01/18 21:39 Pulse Ox 100 10/01/18 21:39 Intake & Output 10/01/18 10/02/18 10/02/18 18:59 06:59 18:59 Intake Total 960 Balance 960 Intake: Oral 960 Other: # Voids 4 # Bowel Movements 1 Stool Characteristics Soft Soft Formed Formed Brown Brown Active Medications: Current Medications Acetaminophen (Tylenol) 650 mg PO Q4H PRN PRN Reason: pain Stop: 11/26/18 15:14 Donepezil HCl (Aricept) 5 mg PO HS [facility] Stop: 11/29/18 20:59 Last Admin: 10/01/18 20:24 Dose: 5 mg Lorazepam (Ativan) 0.5 mg PO Q6HR PRN; Protocol PRN Reason: Agitation Stop: 11/26/18 14:51 Last Admin: 10/02/18 08:48 Dose: 0.5 mg Magnesium Hydroxide (Milk Of Magnesia) 30 ml PO HS PRN PRN Reason: Constipation Stop: 11/26/18 15:02 Sertraline HCl (Zoloft) 50 mg PO QPM [facility] Stop: 11/26/18 16:59 Last Admin: 10/01/18 17:35 Dose: 50 mg Sertraline HCl (Zoloft) 25 mg PO QAM [facility] Stop: 11/27/18 08:59 Last Admin: 10/02/18 08:48 Dose: 25 mg General: alert HEENT: NC/AT, PERRLA Neck: Supple Lungs: CTAB Cardiovascular: RRR, Normal S1, Normal S2, without murmur Abdomen: soft, non-tender, non-distended, positive bowel sound Extremities: excoriation Neurological: alert Internal Medicine Assmt/Plan - Assessment Assessment: osteoporosis anxiety seizure - Plan Plan: seizure precautions fall precautions cpm Nutritional Asmnt/Malnutr-PDOC - Dietary Evaluation Malnutrition Findings (Please click <Entered> for more info): Nutritional Asmnt/Malnutrition Start: 10/01/18 13: 18 Text: Status: Complete Freq: Protocol: Document 10/01/18 13:18 CHENG (Rec: 10/01/18 13:29 CHENG [email or web address]) Nutritional Asmnt/Malnutrition Patient General Information Nutritional Screening Low Risk Diagnosis psychosis NOS Pertinent Medical Hx/Surgical Hx osteoporosis, anxiety, seizure , dementia, HTN Subjective Information Pt eating lunch in rec room during visit. Pt states all her meals are delicious. Discussed pt's lower PO intake since 09/28, but pt states her appetite is good and she will eat more. Pt expressed concerns about her wt; explained that her BMI's healthy. Nursing noted PO intake: 25-50% since 09/28, but 75-100% on 09/27. Current Diet Order/ Nutrition Support regular Pertinent Medications zoloft Pertinent Labs 09/27: glucose 127 Nutritional Hx/Data Height 5 ft Height (Calculated Centimeters) 152.4 Current Weight (lbs) 110 lb Weight (Calculated Kilograms) 49.9 Weight (Calculated Grams) 42405.2 [place] Body Weight 100 lb Body Mass Index (BMI) 21.4 Weight Status Approriate GI Symptoms GI Symptoms None Last BM 09/30 Difficult in: None Food Allergies No Skin Integrity/Comment: intact, bassem 22 Current %PO Good (75-100%) Estimated Nutritional Goals BEE in Kcals: Using Current wt Calories/Kcals/Kg 25-30 Kcals Calculated 7963-6968 Protein: Using Current wt Protein g/k.0 Protein Calculated 50 g Fluid: ml 4353-8141 (1 ml/kcal) Nutritional Problem 1. Problem Problem Inadequate oral intake Etiology possible confusion Signs/Symptoms: PO intake 25-50% since 09/28 Intervention/Recommendation Comments 1. Continue with regular diet as ordered. Encourage PO intake and assist with meals as needed 2. Consider adding nutrition supplement if PO intake <50% 3. Monitor PO intake, wt, labs and skin integrity 4. F/U as moderate risk in 3-5 days, 10/04-; PO check 10/04 Expected Outcomes/Goals Expected Outcomes/Goals 1. PO intake to meet at least 75% of all meals 2. Wt stability, skin to remain intact, labs to approach WNL Reviewed by Felicitas Petty RD
--- NOTE | 2018-10-02 21:56 | Progress Notes ---
DATE: 10/02/2018 SUBJECTIVE: The patient was seen, chart reviewed, and discussed with staff. The patient continues to be very confused, forgetful, disoriented, requiring numerous redirections. However, she does not require any p.r.n. medications, often confabulating her answers. She has been compliant with medications. PLAN: The patient continues to be actively demented and disoriented, so that she will require inpatient care center treatment. We will monitor patient on a daily basis for response to medications and titrate medications as needed. [facility]# [id number]
--- NOTE | 2018-10-03 11:40 | Internal Medicine Prog Note ---
Internal Medicine Subjective - Subjective Service Date: 10/03/18 Patient is:: awake, verbal Per staff patient has:: tolerating meds Internal Medicine Objective - Results Result Diagrams: 09/27/18 00:30 09/27/18 00:30 Recent Labs: Laboratory Last Values WBC 10.5 Th/cmm (4.8-10.8) 09/27/18 00:30 RBC 4.64 Mil/cmm (3.80-5.20) 09/27/18 00:30 Hgb 13.4 gm/dL (12-16) 09/27/18 00:30 Hct 40.1 % (41.0-60) L 09/27/18 00:30 MCV 86.3 fl (81-100) 09/27/18 00:30 MCH 28.9 pg (27.0-31.0) 09/27/18 00:30 MCHC Differential 33.5 pg (28.0-36.0) 09/27/18 00:30 RDW 12.8 % (11.5-20.0) 09/27/18 00:30 Plt Count 277 Th/cmm (150-400) 09/27/18 00:30 MPV 7.0 fl 09/27/18 00:30 Neutrophils % 70.2 % (40.0-80.0) 09/27/18 00:30 Lymphocytes % 16.1 % (20.0-50.0) L 09/27/18 00:30 Monocytes % 7.2 % (2.0-10.0) 09/27/18 00:30 Eosinophils % 1.9 % (0.0-5.0) 09/27/18 00:30 Basophils % 4.6 % (0.0-2.0) H 09/27/18 00:30 Sodium 138 mEq/L (136-145) 09/27/18 00:30 Potassium 3.9 mEq/L (3.5-5.1) 09/27/18 00:30 Chloride 103 mEq/L (98-107) 09/27/18 00:30 Carbon Dioxide 27.7 mEq/L (21.0-31.0) 09/27/18 00:30 Anion Gap 11.2 (7.0-16.0) 09/27/18 00:30 BUN 19 mg/dL (7-25) 09/27/18 00:30 Creatinine 0.9 mg/dL (0.6-1.2) 09/27/18 00:30 Est GFR ( Amer) > 60.0 ml/min (>90) 09/27/18 00:30 Est GFR (Non-Af Amer) > 60.0 ml/min 09/27/18 00: BUN/Creatinine Ratio 21.1 09/27/18: Glucose 127 mg/dL (70-105) H 09/27/18: Calcium 9.3 mg/dL (8.6-10.3) 09/27/18:30 Total Bilirubin 0.3 mg/dL (0.3-1.0) 09/27/18:30 AST 25 U/L (13-39) 09/27/18 00:30 ALT 16 U/L (7-52) 09/27/18 00: Alkaline Phosphatase 64 U/L (34-104) 09/27/18 00:30 Total Protein 6.5 gm/dL (6.0-8.3) 09/27/18 00:30 Albumin 4.1 gm/dL (3.7-5.3) 09/27/18: Globulin 2.4 gm/dL 09/27/18 00:30 Albumin/Globulin Ratio 1.7 (1.0-1.8) 09/27/18 00:30 Triglycerides 88 mg/dL (<150) 09/27/18 00:30 Cholesterol 177 mg/dL (<200) 09/27/18 00:30 LDL Cholesterol Direct 111 mg/dL (75-193) 09/27/18 00:30 HDL Cholesterol 65 mg/dL (23-92) 09/27/18 00:30 TSH 4.84 uIU/ml (0.34-5.60) 09/27/18 00:30 Urine Source CLEAN C 09/27/18:35 Urine Color YELLOW 09/27/18: Urine Clarity CLEAR (CLEAR) 09/27/18: Urine pH 6.0 (4.6 - 8.0) 09/27/18 00:35 Ur Specific [place] 1.010 (1.005-1.030) 09/27/18: Urine Protein NEGATIVE mg/dL (NEGATIVE) 11/26/18 00:35 Urine Glucose (UA) NEGATIVE mg/dL (NEGATIVE) 09/27/18 00:35 Urine Ketones NEGATIVE mg/dL (NEGATIVE) 09/27/18 00:35 Urine Blood NEGATIVE (NEGATIVE) 09/27/18 00:35 Urine Nitrate NEGATIVE (NEGATIVE) 09/27/18 00:35 Urine Bilirubin NEGATIVE (NEGATIVE) 09/27/18 00:35 Urine Urobilinogen 0.2 E.U./dL (0.2 - 1.0) 09/27/18 00:35 Ur Leukocyte Esterase TRACE (NEGATIVE) H 09/27/18 00:35 Urine RBC 0-2 /hpf (0-5) 09/27/18 00:35 Urine WBC 0-2 /hpf (0-5) 09/27/18 00:35 Ur Epithelial Cells FEW /lpf (FEW) 09/27/18 00:35 Urine Bacteria FEW /hpf (NONE SEEN) 09/27/18 00:35 RPR NONREACTIVE (NONREACTIVE) 09/27/18 00:30 - Physical Exam Vitals and I&O: Vital Signs Temp 98.1 F 10/03/18 06:51 Pulse 77 10/03/18 06:51 Resp 19 10/03/18 06:51 BP 123/80 10/03/18 06:51 Pulse Ox 94 10/03/18 06:51 Intake & Output 10/02/18 10/03/18 10/03/18 18:59 06:59 18:59 Intake Total 1500 240 Balance 1500 240 Intake: Oral 1500 240 Other: # Voids 3 2 # Bowel Movements 0 Stool Characteristics Soft Formed Brown Active Medications: Current Medications Acetaminophen (Tylenol) 650 mg PO Q4H PRN PRN Reason: pain Stop: 11/26/18 15:14 Donepezil HCl (Aricept) 5 mg PO HS BREE Stop: 11/29/18 20:59 Last Admin: 10/02/18 20:56 Dose: 5 mg Lorazepam (Ativan) 0.5 mg PO Q6HR PRN; Protocol PRN Reason: Agitation Stop: 11/26/18 14:51 Last Admin: 10/03/18 08:52 Dose: 0.5 mg Magnesium Hydroxide (Milk Of Magnesia) 30 ml PO HS PRN PRN Reason: Constipation Stop: 11/26/18 15:02 Sertraline HCl (Zoloft) 50 mg PO QPM [facility] Stop: 11/26/18 16:59 Last Admin: 10/02/18 17:01 Dose: 50 mg Sertraline HCl (Zoloft) 25 mg PO QAM [facility] Stop: 11/27/18 08:59 Last Admin: 10/03/18 08:52 Dose: 25 mg General: alert HEENT: NC/AT, PERRLA Neck: Supple Lungs: CTAB Cardiovascular: RRR, Normal S1, Normal S2, without murmur Abdomen: soft, non-tender, non-distended, positive bowel sound Extremities: excoriation Neurological: alert Internal Medicine Assmt/Plan - Assessment Assessment: osteoporosis anxiety seizure - Plan Plan: seizure precautions fall precautions cpm Nutritional Asmnt/Malnutr-PDOC - Dietary Evaluation Malnutrition Findings (Please click <Entered> for more info): Nutritional Asmnt/Malnutrition Start: 10/01/18 13: 18 Text: Status: Complete Freq: Protocol: Document 10/01/18 13:18 CHENG (Rec: 10/01/18 13:29 CHENG [email or web address]) Nutritional Asmnt/Malnutrition Patient General Information Nutritional Screening Low Risk Diagnosis psychosis NOS Pertinent Medical Hx/Surgical Hx osteoporosis, anxiety, seizure , dementia, HTN Subjective Information Pt eating lunch in rec room during visit. Pt states all her meals are delicious. Discussed pt's lower PO intake since 09/28, but pt states her appetite is good and she will eat more. Pt expressed concerns about her wt; explained that her BMI's healthy. Nursing noted PO intake: 25-50% since 09/28, but 75-100% on 09/27. Current Diet Order/ Nutrition Support regular Pertinent Medications zoloft Pertinent Labs 09/27: glucose 127 Nutritional Hx/Data Height 5 ft Height (Calculated Centimeters) 152.4 Current Weight (lbs) 110 lb Weight (Calculated Kilograms) 49.9 Weight (Calculated Grams) 22051.2 [place] Body Weight 100 lb Body Mass Index (BMI) 21.4 Weight Status Approriate GI Symptoms GI Symptoms None Last BM 09/30 Difficult in: None Food Allergies No Skin Integrity/Comment: intact, bassem 22 Current %PO Good (75-100%) Estimated Nutritional Goals BEE in Kcals: Using Current wt Calories/Kcals/Kg 25-30 Kcals Calculated 5873-4742 Protein: Using Current wt Protein g/k.0 Protein Calculated 50 g Fluid: ml 6148-0232 (1 ml/kcal) Nutritional Problem 1. Problem Problem Inadequate oral intake Etiology possible confusion Signs/Symptoms: PO intake 25-50% since 09/28 Intervention/Recommendation Comments 1. Continue with regular diet as ordered. Encourage PO intake and assist with meals as needed 2. Consider adding nutrition supplement if PO intake <50% 3. Monitor PO intake, wt, labs and skin integrity 4. F/U as moderate risk in 3-5 days, 10/04-; PO check 10/04 Expected Outcomes/Goals Expected Outcomes/Goals 1. PO intake to meet at least 75% of all meals 2. Wt stability, skin to remain intact, labs to approach WNL Reviewed by Felicitas Petty RD
--- NOTE | 2018-10-03 15:55 | Progress Notes ---
DATE: 10/03/2018 SUBJECTIVE: The patient seen, chart reviewed, and discussed with staff. The patient continues to be disoriented, confused, unable to answer most questions in a coherent manner. However, she has not required any p.r.n. medications. Has been compliant with all of her medications and denies any undue side effects. Sleep and appetite have been within normal range. PLAN: The patient continues to be disoriented, unable to make a safe discharge plan, so that she will require continued inpatient care facility stabilization and treatment. We will monitor patient on a daily basis for response to medication and titrate medication as needed. [facility]# [id number]
--- NOTE | 2018-10-03 16:02 | Progress Notes ---
DATE: 10/01/2018 SUBJECTIVE: Chart reviewed and the patient interviewed. Also, discussed the patient's condition with the staff and reviewed records and labs. The patient had problems with her roommate. The patient is confused and she is still obsessed with her roommate and gets easily agitated and needs redirections. The patient also still gets agitated when staff tries to redirect her. The patient also is forgetful and have difficulty remembering short term comments. She also is still compliant with taking medications. The patient denies any side effects of medications. ASSESSMENT: The patient is still confused and needs redirections. TREATMENT PLAN: Continue Zoloft in a dose of 25 mg in the morning and 50 mg at bedtime. We will add Aricept in a dose of 5 mg every day and continue to monitor her condition and her behavior closely. JOB# [id number]
--- NOTE | 2018-10-04 13:00 | Internal Medicine Prog Note ---
Internal Medicine Subjective - Subjective Service Date: 10/04/18 Patient is:: awake, verbal Per staff patient has:: tolerating meds Internal Medicine Objective - Results Result Diagrams: 09/27/18 00:30 09/27/18 00:30 Recent Labs: Laboratory Last Values WBC 10.5 Th/cmm (4.8-10.8) 09/27/18 00:30 RBC 4.64 Mil/cmm (3.80-5.20) 09/27/18 00:30 Hgb 13.4 gm/dL (12-16) 09/27/18 00:30 Hct 40.1 % (41.0-60) L 09/27/18 00:30 MCV 86.3 fl (81-100) 09/27/18 00:30 MCH 28.9 pg (27.0-31.0) 09/27/18 00:30 MCHC Differential 33.5 pg (28.0-36.0) 09/27/18 00:30 RDW 12.8 % (11.5-20.0) 09/27/18 00:30 Plt Count 277 Th/cmm (150-400) 09/27/18 00:30 MPV 7.0 fl 09/27/18 00:30 Neutrophils % 70.2 % (40.0-80.0) 09/27/18 00:30 Lymphocytes % 16.1 % (20.0-50.0) L 09/27/18 00:30 Monocytes % 7.2 % (2.0-10.0) 09/27/18 00:30 Eosinophils % 1.9 % (0.0-5.0) 09/27/18 00:30 Basophils % 4.6 % (0.0-2.0) H 09/27/18 00:30 Sodium 138 mEq/L (136-145) 09/27/18 00:30 Potassium 3.9 mEq/L (3.5-5.1) 09/27/18 00:30 Chloride 103 mEq/L (98-107) 09/27/18 00:30 Carbon Dioxide 27.7 mEq/L (21.0-31.0) 09/27/18 00:30 Anion Gap 11.2 (7.0-16.0) 09/27/18 00:30 BUN 19 mg/dL (7-25) 09/27/18 00:30 Creatinine 0.9 mg/dL (0.6-1.2) 09/27/18 00:30 Est GFR ( Amer) > 60.0 ml/min (>90) 09/27/18 00:30 Est GFR (Non-Af Amer) > 60.0 ml/min 09/27/18 00: BUN/Creatinine Ratio 21.1 09/27/18: Glucose 127 mg/dL (70-105) H 09/27/18: Calcium 9.3 mg/dL (8.6-10.3) 09/27/18:30 Total Bilirubin 0.3 mg/dL (0.3-1.0) 09/27/18:30 AST 25 U/L (13-39) 09/27/18 00:30 ALT 16 U/L (7-52) 09/27/18 00: Alkaline Phosphatase 64 U/L (34-104) 09/27/18 00:30 Total Protein 6.5 gm/dL (6.0-8.3) 09/27/18 00:30 Albumin 4.1 gm/dL (3.7-5.3) 09/27/18: Globulin 2.4 gm/dL 09/27/18 00:30 Albumin/Globulin Ratio 1.7 (1.0-1.8) 09/27/18 00:30 Triglycerides 88 mg/dL (<150) 09/27/18 00:30 Cholesterol 177 mg/dL (<200) 09/27/18 00:30 LDL Cholesterol Direct 111 mg/dL (75-193) 09/27/18 00:30 HDL Cholesterol 65 mg/dL (23-92) 09/27/18 00:30 TSH 4.84 uIU/ml (0.34-5.60) 09/27/18 00:30 Urine Source CLEAN C 09/27/18:35 Urine Color YELLOW 09/27/18: Urine Clarity CLEAR (CLEAR) 09/27/18: Urine pH 6.0 (4.6 - 8.0) 09/27/18 00:35 Ur Specific [place] 1.010 (1.005-1.030) 09/27/18: Urine Protein NEGATIVE mg/dL (NEGATIVE) 11/26/18 00:35 Urine Glucose (UA) NEGATIVE mg/dL (NEGATIVE) 09/27/18 00:35 Urine Ketones NEGATIVE mg/dL (NEGATIVE) 09/27/18 00:35 Urine Blood NEGATIVE (NEGATIVE) 09/27/18 00:35 Urine Nitrate NEGATIVE (NEGATIVE) 09/27/18 00:35 Urine Bilirubin NEGATIVE (NEGATIVE) 09/27/18 00:35 Urine Urobilinogen 0.2 E.U./dL (0.2 - 1.0) 09/27/18 00:35 Ur Leukocyte Esterase TRACE (NEGATIVE) H 09/27/18 00:35 Urine RBC 0-2 /hpf (0-5) 09/27/18 00:35 Urine WBC 0-2 /hpf (0-5) 09/27/18 00:35 Ur Epithelial Cells FEW /lpf (FEW) 09/27/18 00:35 Urine Bacteria FEW /hpf (NONE SEEN) 09/27/18 00:35 RPR NONREACTIVE (NONREACTIVE) 09/27/18 00:30 - Physical Exam Vitals and I&O: Vital Signs Temp 98.6 F 10/04/18 06:14 Pulse 74 10/04/18 06:14 Resp 20 10/04/18 08:00 BP 104/69 10/04/18 06:14 Pulse Ox 98 10/04/18 06:14 Intake & Output 10/03/18 10/04/18 10/04/18 18:59 06:59 18:59 Intake Total 700 120 Balance 700 120 Intake: Oral 700 120 Other: # Voids 3 1 # Bowel Movements 1 0 Active Medications: Current Medications Acetaminophen (Tylenol) 650 mg PO Q4H PRN PRN Reason: pain Stop: 11/26/18 15:14 Donepezil HCl (Aricept) 5 mg PO HS [facility] Stop: 11/29/18 20:59 Last Admin: 10/03/18 20:34 Dose: 5 mg Lorazepam (Ativan) 0.5 mg PO Q6HR PRN; Protocol PRN Reason: Agitation Stop: 11/26/18 14:51 Last Admin: 10/03/18 16:08 Dose: 0.5 mg Magnesium Hydroxide (Milk Of Magnesia) 30 ml PO HS PRN PRN Reason: Constipation Stop: 11/26/18 15:02 Quetiapine Fumarate (Seroquel) 25 mg PO TID [facility]; Protocol Stop: 12/03/18 08:59 Last Admin: 10/04/18 09:47 Dose: 25 mg Sertraline HCl (Zoloft) 50 mg PO QPM [facility] Stop: 11/26/18 16:59 Last Admin: 10/03/18 16:08 Dose: 50 mg Sertraline HCl (Zoloft) 25 mg PO QAM [facility] Stop: 11/27/18 08:59 Last Admin: 10/04/18 09:46 Dose: 25 mg General: alert HEENT: NC/AT, PERRLA Neck: Supple Lungs: CTAB Cardiovascular: RRR, Normal S1, Normal S2, without murmur Abdomen: soft, non-tender, non-distended, positive bowel sound Extremities: excoriation Neurological: alert Internal Medicine Assmt/Plan - Assessment Assessment: osteoporosis anxiety seizure - Plan Plan: seizure precautions fall precautions cpm Nutritional Asmnt/Malnutr-PDOC - Dietary Evaluation Malnutrition Findings (Please click <Entered> for more info): Nutritional Asmnt/Malnutrition Start: 10/01/18 13: 18 Text: Status: Complete Freq: Protocol: Document 10/01/18 13:18 ALIXMEGAN (Rec: 10/01/18 13:29 CHENG [email or web address]) Nutritional Asmnt/Malnutrition Patient General Information Nutritional Screening Low Risk Diagnosis psychosis NOS Pertinent Medical Hx/Surgical Hx osteoporosis, anxiety, seizure , dementia, HTN Subjective Information Pt eating lunch in rec room during visit. Pt states all her meals are delicious. Discussed pt's lower PO intake since 09/28, but pt states her appetite is good and she will eat more. Pt expressed concerns about her wt; explained that her BMI's healthy. Nursing noted PO intake: 25-50% since 09/28, but 75-100% on 09/27. Current Diet Order/ Nutrition Support regular Pertinent Medications zoloft Pertinent Labs 09/27: glucose 127 Nutritional Hx/Data Height 5 ft Height (Calculated Centimeters) 152.4 Current Weight (lbs) 110 lb Weight (Calculated Kilograms) 49.9 Weight (Calculated Grams) 26799.2 [place] Body Weight 100 lb Body Mass Index (BMI) 21.4 Weight Status Approriate GI Symptoms GI Symptoms None Last BM 09/30 Difficult in: None Food Allergies No Skin Integrity/Comment: intact, bassem 22 Current %PO Good (75-100%) Estimated Nutritional Goals BEE in Kcals: Using Current wt Calories/Kcals/Kg 25-30 Kcals Calculated 0520-7554 Protein: Using Current wt Protein g/k.0 Protein Calculated 50 g Fluid: ml 4272-4056 (1 ml/kcal) Nutritional Problem 1. Problem Problem Inadequate oral intake Etiology possible confusion Signs/Symptoms: PO intake 25-50% since 09/28 Intervention/Recommendation Comments 1. Continue with regular diet as ordered. Encourage PO intake and assist with meals as needed 2. Consider adding nutrition supplement if PO intake <50% 3. Monitor PO intake, wt, labs and skin integrity 4. F/U as moderate risk in 3-5 days, 10/04-5; PO check 10/04 Expected Outcomes/Goals Expected Outcomes/Goals 1. PO intake to meet at least 75% of all meals 2. Wt stability, skin to remain intact, labs to approach WNL Reviewed by Felicitas Petty RD
--- NOTE | 2018-10-05 05:03 | Progress Notes ---
DATE: SUBJECTIVE: Chart reviewed and the patient interviewed. Also discussed the patient's condition with the staff and reviewed records and labs. The patient is still forgetful. The patient also is still anxious and confused and in irritable mood. Also, cursing nurses and she is trying to kiss her roommate in inappropriate way. She also is still easily irritable and agitated and needs close monitoring. ASSESSMENT: The patient is still psychotic. TREATMENT PLAN: Continue to monitor behavior closely. Also, we will add Seroquel in a dose of 25 mg 3 times a day and continue Zoloft 25 mg in the morning and 50 mg at bedtime and we will continue to follow up. JOB# [id number]
--- NOTE | 2018-10-05 14:11 | Internal Medicine Prog Note ---
Internal Medicine Subjective - Subjective Service Date: 10/05/18 Patient is:: awake, verbal Per staff patient has:: tolerating meds Internal Medicine Objective - Results Result Diagrams: 09/27/18 00:30 09/27/18 00:30 Recent Labs: Laboratory Last Values WBC 10.5 Th/cmm (4.8-10.8) 09/27/18 00:30 RBC 4.64 Mil/cmm (3.80-5.20) 09/27/18 00:30 Hgb 13.4 gm/dL (12-16) 09/27/18 00:30 Hct 40.1 % (41.0-60) L 09/27/18 00:30 MCV 86.3 fl (81-100) 09/27/18 00:30 MCH 28.9 pg (27.0-31.0) 09/27/18 00:30 MCHC Differential 33.5 pg (28.0-36.0) 09/27/18 00:30 RDW 12.8 % (11.5-20.0) 09/27/18 00:30 Plt Count 277 Th/cmm (150-400) 09/27/18 00:30 MPV 7.0 fl 09/27/18 00:30 Neutrophils % 70.2 % (40.0-80.0) 09/27/18 00:30 Lymphocytes % 16.1 % (20.0-50.0) L 09/27/18 00:30 Monocytes % 7.2 % (2.0-10.0) 09/27/18 00:30 Eosinophils % 1.9 % (0.0-5.0) 09/27/18 00:30 Basophils % 4.6 % (0.0-2.0) H 09/27/18 00:30 Sodium 138 mEq/L (136-145) 09/27/18 00:30 Potassium 3.9 mEq/L (3.5-5.1) 09/27/18 00:30 Chloride 103 mEq/L (98-107) 09/27/18 00:30 Carbon Dioxide 27.7 mEq/L (21.0-31.0) 09/27/18 00:30 Anion Gap 11.2 (7.0-16.0) 09/27/18 00:30 BUN 19 mg/dL (7-25) 09/27/18 00:30 Creatinine 0.9 mg/dL (0.6-1.2) 09/27/18 00:30 Est GFR ( Amer) > 60.0 ml/min (>90) 09/27/18 00:30 Est GFR (Non-Af Amer) > 60.0 ml/min 09/27/18 00: BUN/Creatinine Ratio 21.1 09/27/18: Glucose 127 mg/dL (70-105) H 09/27/18: Calcium 9.3 mg/dL (8.6-10.3) 09/27/18:30 Total Bilirubin 0.3 mg/dL (0.3-1.0) 09/27/18:30 AST 25 U/L (13-39) 09/27/18 00:30 ALT 16 U/L (7-52) 09/27/18 00: Alkaline Phosphatase 64 U/L (34-104) 09/27/18 00:30 Total Protein 6.5 gm/dL (6.0-8.3) 09/27/18 00:30 Albumin 4.1 gm/dL (3.7-5.3) 09/27/18: Globulin 2.4 gm/dL 09/27/18 00:30 Albumin/Globulin Ratio 1.7 (1.0-1.8) 09/27/18 00:30 Triglycerides 88 mg/dL (<150) 09/27/18 00:30 Cholesterol 177 mg/dL (<200) 09/27/18 00:30 LDL Cholesterol Direct 111 mg/dL (75-193) 09/27/18 00:30 HDL Cholesterol 65 mg/dL (23-92) 09/27/18 00:30 TSH 4.84 uIU/ml (0.34-5.60) 09/27/18 00:30 Urine Source CLEAN C 09/27/18:35 Urine Color YELLOW 09/27/18: Urine Clarity CLEAR (CLEAR) 09/27/18: Urine pH 6.0 (4.6 - 8.0) 09/27/18 00:35 Ur Specific [place] 1.010 (1.005-1.030) 09/27/18: Urine Protein NEGATIVE mg/dL (NEGATIVE) 11/26/18 00:35 Urine Glucose (UA) NEGATIVE mg/dL (NEGATIVE) 09/27/18 00:35 Urine Ketones NEGATIVE mg/dL (NEGATIVE) 09/27/18 00:35 Urine Blood NEGATIVE (NEGATIVE) 09/27/18 00:35 Urine Nitrate NEGATIVE (NEGATIVE) 09/27/18 00:35 Urine Bilirubin NEGATIVE (NEGATIVE) 09/27/18 00:35 Urine Urobilinogen 0.2 E.U./dL (0.2 - 1.0) 09/27/18 00:35 Ur Leukocyte Esterase TRACE (NEGATIVE) H 09/27/18 00:35 Urine RBC 0-2 /hpf (0-5) 09/27/18 00:35 Urine WBC 0-2 /hpf (0-5) 09/27/18 00:35 Ur Epithelial Cells FEW /lpf (FEW) 09/27/18 00:35 Urine Bacteria FEW /hpf (NONE SEEN) 09/27/18 00:35 RPR NONREACTIVE (NONREACTIVE) 09/27/18 00:30 - Physical Exam Vitals and I&O: Vital Signs Temp 97.8 F 10/05/18 06:45 Pulse 85 10/05/18 06:45 Resp 20 10/05/18 08:00 BP 123/73 10/05/18 06:45 Pulse Ox 98 10/05/18 06:45 Intake & Output 10/04/18 10/05/18 10/05/18 18:59 06:59 18:59 Intake Total 900 240 Balance 900 240 Intake: Oral 900 240 Other: # Voids 3 2 # Bowel Movements 0 0 Active Medications: Current Medications Acetaminophen (Tylenol) 650 mg PO Q4H PRN PRN Reason: pain Stop: 11/26/18 15:14 Lorazepam (Ativan) 0.5 mg PO Q6HR PRN; Protocol PRN Reason: Agitation Stop: 11/26/18 14:51 Last Admin: 10/03/18 16:08 Dose: 0.5 mg Magnesium Hydroxide (Milk Of Magnesia) 30 ml PO HS PRN PRN Reason: Constipation Stop: 11/26/18 15:02 Memantine (Namenda) 5 mg PO HS [facility] Stop: 12/04/18 20:59 Quetiapine Fumarate (Seroquel) 25 mg PO TID [facility]; Protocol Stop: 12/03/18 08:59 Last Admin: 10/05/18 10:13 Dose: 25 mg Sertraline HCl (Zoloft) 50 mg PO QPM [facility] Stop: 11/26/18 16:59 Last Admin: 10/04/18 17:27 Dose: 50 mg Sertraline HCl (Zoloft) 25 mg PO QAM [facility] Stop: 11/27/18 08:59 Last Admin: 10/05/18 10:13 Dose: 25 mg General: alert HEENT: NC/AT, PERRLA Neck: Supple Lungs: CTAB Cardiovascular: RRR, Normal S1, Normal S2, without murmur Abdomen: soft, non-tender, non-distended, positive bowel sound Extremities: excoriation Neurological: alert Internal Medicine Assmt/Plan - Assessment Assessment: osteoporosis anxiety seizure - Plan Plan: seizure precautions fall precautions cpm Nutritional Asmnt/Malnutr-PDOC - Dietary Evaluation Malnutrition Findings (Please click <Entered> for more info): Nutritional Asmnt/Malnutrition Start: 10/01/18 13: 18 Text: Status: Complete Freq: Protocol: Document 10/01/18 13:18 ALIXMEGAN (Rec: 10/01/18 13:29 CHENG [email or web address]) Nutritional Asmnt/Malnutrition Patient General Information Nutritional Screening Low Risk Diagnosis psychosis NOS Pertinent Medical Hx/Surgical Hx osteoporosis, anxiety, seizure , dementia, HTN Subjective Information Pt eating lunch in rec room during visit. Pt states all her meals are delicious. Discussed pt's lower PO intake since 09/28, but pt states her appetite is good and she will eat more. Pt expressed concerns about her wt; explained that her BMI's healthy. Nursing noted PO intake: 25-50% since 09/28, but 75-100% on 09/27. Current Diet Order/ Nutrition Support regular Pertinent Medications zoloft Pertinent Labs 09/27: glucose 127 Nutritional Hx/Data Height 5 ft Height (Calculated Centimeters) 152.4 Current Weight (lbs) 110 lb Weight (Calculated Kilograms) 49.9 Weight (Calculated Grams) 45595.2 [place] Body Weight 100 lb Body Mass Index (BMI) 21.4 Weight Status Approriate GI Symptoms GI Symptoms None Last BM 09/30 Difficult in: None Food Allergies No Skin Integrity/Comment: intact, bassem 22 Current %PO Good (75-100%) Estimated Nutritional Goals BEE in Kcals: Using Current wt Calories/Kcals/Kg 25-30 Kcals Calculated 2731-5761 Protein: Using Current wt Protein g/k.0 Protein Calculated 50 g Fluid: ml 8931-6855 (1 ml/kcal) Nutritional Problem 1. Problem Problem Inadequate oral intake Etiology possible confusion Signs/Symptoms: PO intake 25-50% since 09/28 Intervention/Recommendation Comments 1. Continue with regular diet as ordered. Encourage PO intake and assist with meals as needed 2. Consider adding nutrition supplement if PO intake <50% 3. Monitor PO intake, wt, labs and skin integrity 4. F/U as moderate risk in 3-5 days, 10/04-5; PO check 10/04 Expected Outcomes/Goals Expected Outcomes/Goals 1. PO intake to meet at least 75% of all meals 2. Wt stability, skin to remain intact, labs to approach WNL Reviewed by Felicitas Petty RD
--- NOTE | 2018-10-06 15:28 | Internal Medicine Prog Note ---
Internal Medicine Subjective - Subjective Service Date: 10/06/18 Patient is:: awake, verbal Per staff patient has:: tolerating meds Internal Medicine Objective - Results Result Diagrams: 09/27/18 00:30 09/27/18 00:30 Recent Labs: Laboratory Last Values WBC 10.5 Th/cmm (4.8-10.8) 09/27/18 00:30 RBC 4.64 Mil/cmm (3.80-5.20) 09/27/18 00:30 Hgb 13.4 gm/dL (12-16) 09/27/18 00:30 Hct 40.1 % (41.0-60) L 09/27/18 00:30 MCV 86.3 fl (81-100) 09/27/18 00:30 MCH 28.9 pg (27.0-31.0) 09/27/18 00:30 MCHC Differential 33.5 pg (28.0-36.0) 09/27/18 00:30 RDW 12.8 % (11.5-20.0) 09/27/18 00:30 Plt Count 277 Th/cmm (150-400) 09/27/18 00:30 MPV 7.0 fl 09/27/18 00:30 Neutrophils % 70.2 % (40.0-80.0) 09/27/18 00:30 Lymphocytes % 16.1 % (20.0-50.0) L 09/27/18 00:30 Monocytes % 7.2 % (2.0-10.0) 09/27/18 00:30 Eosinophils % 1.9 % (0.0-5.0) 09/27/18 00:30 Basophils % 4.6 % (0.0-2.0) H 09/27/18 00:30 Sodium 138 mEq/L (136-145) 09/27/18 00:30 Potassium 3.9 mEq/L (3.5-5.1) 09/27/18 00:30 Chloride 103 mEq/L (98-107) 09/27/18 00:30 Carbon Dioxide 27.7 mEq/L (21.0-31.0) 09/27/18 00:30 Anion Gap 11.2 (7.0-16.0) 09/27/18 00:30 BUN 19 mg/dL (7-25) 09/27/18 00:30 Creatinine 0.9 mg/dL (0.6-1.2) 09/27/18 00:30 Est GFR ( Amer) > 60.0 ml/min (>90) 09/27/18 00:30 Est GFR (Non-Af Amer) > 60.0 ml/min 09/27/18 00: BUN/Creatinine Ratio 21.1 09/27/18: Glucose 127 mg/dL (70-105) H 09/27/18: Calcium 9.3 mg/dL (8.6-10.3) 09/27/18:30 Total Bilirubin 0.3 mg/dL (0.3-1.0) 09/27/18:30 AST 25 U/L (13-39) 09/27/18 00:30 ALT 16 U/L (7-52) 09/27/18 00: Alkaline Phosphatase 64 U/L (34-104) 09/27/18 00:30 Total Protein 6.5 gm/dL (6.0-8.3) 09/27/18 00:30 Albumin 4.1 gm/dL (3.7-5.3) 09/27/18: Globulin 2.4 gm/dL 09/27/18 00:30 Albumin/Globulin Ratio 1.7 (1.0-1.8) 09/27/18 00:30 Triglycerides 88 mg/dL (<150) 09/27/18 00:30 Cholesterol 177 mg/dL (<200) 09/27/18 00:30 LDL Cholesterol Direct 111 mg/dL (75-193) 09/27/18 00:30 HDL Cholesterol 65 mg/dL (23-92) 09/27/18 00:30 TSH 4.84 uIU/ml (0.34-5.60) 09/27/18 00:30 Urine Source CLEAN C 09/27/18:35 Urine Color YELLOW 09/27/18: Urine Clarity CLEAR (CLEAR) 09/27/18: Urine pH 6.0 (4.6 - 8.0) 09/27/18 00:35 Ur Specific [place] 1.010 (1.005-1.030) 09/27/18: Urine Protein NEGATIVE mg/dL (NEGATIVE) 11/26/18 00:35 Urine Glucose (UA) NEGATIVE mg/dL (NEGATIVE) 09/27/18 00:35 Urine Ketones NEGATIVE mg/dL (NEGATIVE) 09/27/18 00:35 Urine Blood NEGATIVE (NEGATIVE) 09/27/18 00:35 Urine Nitrate NEGATIVE (NEGATIVE) 09/27/18 00:35 Urine Bilirubin NEGATIVE (NEGATIVE) 09/27/18 00:35 Urine Urobilinogen 0.2 E.U./dL (0.2 - 1.0) 09/27/18 00:35 Ur Leukocyte Esterase TRACE (NEGATIVE) H 09/27/18 00:35 Urine RBC 0-2 /hpf (0-5) 09/27/18 00:35 Urine WBC 0-2 /hpf (0-5) 09/27/18 00:35 Ur Epithelial Cells FEW /lpf (FEW) 09/27/18 00:35 Urine Bacteria FEW /hpf (NONE SEEN) 09/27/18 00:35 RPR NONREACTIVE (NONREACTIVE) 09/27/18 00:30 - Physical Exam Vitals and I&O: Vital Signs Temp 98.2 F 10/06/18 14:00 Pulse 89 10/06/18 14:00 Resp 20 10/06/18 14:00 BP 141/95 10/06/18 14:00 Pulse Ox 96 10/06/18 14:00 Intake & Output 10/05/18 10/06/18 10/06/18 18:59 06:59 18:59 Intake Total 950 240 Balance 950 240 Intake: Oral 950 240 Other: # Voids 4 3 # Bowel Movements 1 0 Active Medications: Current Medications Acetaminophen (Tylenol) 650 mg PO Q4H PRN PRN Reason: pain Stop: 11/26/18 15:14 Lorazepam (Ativan) 0.5 mg PO Q6HR PRN; Protocol PRN Reason: Agitation Stop: 11/26/18 14:51 Last Admin: 10/03/18 16:08 Dose: 0.5 mg Magnesium Hydroxide (Milk Of Magnesia) 30 ml PO HS PRN PRN Reason: Constipation Stop: 11/26/18 15:02 Memantine (Namenda) 5 mg PO HS BREE Stop: 12/04/18 20:59 Last Admin: 10/05/18 20:56 Dose: 5 mg Quetiapine Fumarate (Seroquel) 25 mg PO TID [facility]; Protocol Stop: 12/03/18 08:59 Last Admin: 10/06/18 13:17 Dose: 25 mg Sertraline HCl (Zoloft) 50 mg PO QPM [facility] Stop: 11/26/18 16:59 Last Admin: 10/05/18 16:17 Dose: 50 mg Sertraline HCl (Zoloft) 25 mg PO QAM [facility] Stop: 11/27/18 08:59 Last Admin: 10/06/18 09:39 Dose: 25 mg General: alert HEENT: NC/AT, PERRLA Neck: Supple Lungs: CTAB Cardiovascular: RRR, Normal S1, Normal S2, without murmur Abdomen: soft, non-tender, non-distended, positive bowel sound Extremities: excoriation Neurological: alert Internal Medicine Assmt/Plan - Assessment Assessment: osteoporosis anxiety seizure - Plan Plan: seizure precautions fall precautions cpm Nutritional Asmnt/Malnutr-PDOC - Dietary Evaluation Malnutrition Findings (Please click <Entered> for more info): Nutritional Asmnt/Malnutrition Start: 10/01/18 13: 18 Text: Status: Complete Freq: Protocol: Document 10/01/18 13:18 ALIXMEGAN (Rec: 10/01/18 13:29 CHENG [email or web address]) Nutritional Asmnt/Malnutrition Patient General Information Nutritional Screening Low Risk Diagnosis psychosis NOS Pertinent Medical Hx/Surgical Hx osteoporosis, anxiety, seizure , dementia, HTN Subjective Information Pt eating lunch in rec room during visit. Pt states all her meals are delicious. Discussed pt's lower PO intake since 09/28, but pt states her appetite is good and she will eat more. Pt expressed concerns about her wt; explained that her BMI's healthy. Nursing noted PO intake: 25-50% since 09/28, but 75-100% on 09/27. Current Diet Order/ Nutrition Support regular Pertinent Medications zoloft Pertinent Labs 09/27: glucose 127 Nutritional Hx/Data Height 5 ft Height (Calculated Centimeters) 152.4 Current Weight (lbs) 110 lb Weight (Calculated Kilograms) 49.9 Weight (Calculated Grams) 65780.2 Cora Body Weight 100 lb Body Mass Index (BMI) 21.4 Weight Status Approriate GI Symptoms GI Symptoms None Last BM 09/30 Difficult in: None Food Allergies No Skin Integrity/Comment: intact, bassem 22 Current %PO Good (75-100%) Estimated Nutritional Goals BEE in Kcals: Using Current wt Calories/Kcals/Kg 25-30 Kcals Calculated [id number] Protein: Using Current wt Protein g/k.0 Protein Calculated 50 g Fluid: ml [id number] (1 ml/kcal) Nutritional Problem 1. Problem Problem Inadequate oral intake Etiology possible confusion Signs/Symptoms: PO intake 25-50% since 09/28 Intervention/Recommendation Comments 1. Continue with regular diet as ordered. Encourage PO intake and assist with meals as needed 2. Consider adding nutrition supplement if PO intake <50% 3. Monitor PO intake, wt, labs and skin integrity 4. F/U as moderate risk in 3-5 days, 10/04-; PO check 10/04 Expected Outcomes/Goals Expected Outcomes/Goals 1. PO intake to meet at least 75% of all meals 2. Wt stability, skin to remain intact, labs to approach WNL Reviewed by Felicitas Petty RD
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
--- NOTE | 2018-10-07 16:22 | Progress Notes ---
DATE: 10/05/2018 SUBJECTIVE: Chart reviewed and the patient interviewed. Also discussed the patient's condition with the staff and reviewed records and labs. Also discussed the patient's condition with the patient's partner with permission from the patient. The patient is still forgetful at times and she is still confused and anxious. The patient also is still at times seems to be depressed. She also needs redirections at time. Otherwise, the patient is compliant with taking her medications with no side effects of medications. ASSESSMENT: The patient is still confused and forgetful, but is improved than her admission. TREATMENT PLAN: Continue monitoring her behavior here. Also after discussion with her partner, it seems that Aricept was not effective for the patient. We will change Aricept to Namenda 5 mg day and will continue to monitor her behavior and condition closely. [facility]# [id number]
== END 2018-10-06 15:15 | disposition home or self-care (01) | DRG 885 ==
LOC: ER 23:58 → GERO 09-27 01:35
PROVIDERS: ADMIT Psychiatry & Neurology Psychiatry; ATTEND Psychiatry & Neurology Psychiatry
DX: F29 Unspecified psychosis not due to a substance or known physiological condition (principal); F33.2 Major depressive disorder, recurrent severe without psychotic features; F03.91 Unspecified dementia, unspecified severity, with behavioral disturbance; I10 Essential (primary) hypertension; M81.0 Age-related osteoporosis without current pathological fracture; F41.9 Anxiety disorder, unspecified; D64.9 Anemia, unspecified; R56.9 Unspecified convulsions; Z91.5 Personal history of self-harm
CPT/HCPCS: 36415-UA; 80053-TC; 80061-TC; 81001-TC; 83036-90; 84443-TC; 85025-TC; 86592-TC; 93005; J1630; J2060; Z7610